=== PATIENT | female | born 1990 | race Two or more races ===

== ENCOUNTER 2017-11-09 14:33 | Emergency (ER) | payer OTHER ==
[~2017-11-09] VITALS: Ht 162.6 cm; Wt 56.7 kg
[2017-11-09] MEDS ORDERED: [UNRECOGNIZED DRUG - OTHER] (14:44)
== END 2017-11-09 17:02 | disposition home or self-care (01) ==
LOC: ER 14:33
DX: O20.0 Threatened abortion (principal); Z34.01 Encounter for supervision of normal first pregnancy, first trimester

== ENCOUNTER → 2017-11-11 | Day surgery (SDC) | payer OTHER ==
[~2017-11-11] VITALS: Ht 162.6 cm; Wt 56.7 kg
[~2017-11-11] MED LIST: [UNRECOGNIZED DRUG - OTHER]
== END | disposition home or self-care (01) ==
LOC: ER 13:21 → CIR.AMB 16:01
DX: O03.4 Incomplete spontaneous abortion without complication (principal)